=== PATIENT | male | born 1945 | race Caucasian/White ===

== ENCOUNTER → 2016-08-31 | Outpatient (CLI) | payer MEDICARE ==
[~2016-08-31] MED LIST: ALPR.25 PO; ASPI81CH CHEW; BUTA1CAP PO; CALC1CHW30 CHEW; CHOL1CHW5 CHEW; DICY10CA12 PO; DIGO0.12 PO; FLUT1SPR5 EACH NARE; IPRA17I INH; LISI10TA3 PO; LOMO2.5T PO; METO-426 PO; MULTCAP14 PO; NEXI40CA PO; NITR1SUB3 SL; OXYC-428 PO; OXYC15TA PO; PROZ20CA11 PO; ROSU40 PO; TRAZ150T75 PO; UROCTAB2 PO; XANA1TAB2 PO
[2016-08-31 13:11] LABS: INTERNATIONAL NORMALIZED RATIO 1.7 RATIO; PROTHROMBIN TIME - PATIENT 19.2 SEC (9.8-11.6)
== END ==
LOC: PLAB 11:36
DX: I48.2 Chronic atrial fibrillation (principal); Z79.01 Long term (current) use of anticoagulants
CPT/HCPCS: 36415; 85610